=== PATIENT | male | born 1945 | race African-American/Black ===

== ENCOUNTER 2018-06-18 11:37 | Inpatient (IN) ==
[2018-06-18 12:16] LABS: BASO# 0.01 X1000 (0.0-0.2); BASO% 0.1 % (0.0-0.8); EOS# 0.02 X1000 (0.0-0.7); EOS% 0.2 % (0.0-10.0); HEMATOCRIT 41.1 % (42.0-52.0); IMM GRAN# 0.02 X1000 (0.0-0.04); IMM GRAN% 0.2 % (0.0-0.5); LYMPH# 0.69 X1000 (1.2-3.4); LYMPH% 5.9 % (20.5-51.1); MCH 29.9 PG (27-31); MCHC 34.1 g/dL (33-37); MCV 87.6 FL (81-99); MONO# 0.38 X1000 (0.11-0.59); MONO% 3.3 % (1.7-9.3); MPV 11.8 FL (7.4-10.4); NEUT# 10.55 X1000 (1.4-6.5); NEUT% 90.3 % (42.2-75.2); PLT 117 X1000 (130-400); RBC 4.69 XMIL (4.7-6.1); RDW 12.4 % (11.5-14.5); WBC 11.67 X1000 (4.8-10.8)
--- NOTE | 2018-06-18 12:23 | Diag Imaging Result Doc PS360 ---
EXAM: CT HEAD W/O CONTRAST HISTORY: freq falls, dementia, inability to walk TECHNIQUE: CT head without contrast COMPARISON: 09/13/2016 FINDINGS: No parenchymal hemorrhage. No acute epidural or subdural hematoma. Tiny chronic left subdural collection measuring 3 mm in thickness. No subarachnoid hemorrhage. There is mild atrophy with mild chronic microvascular ischemic changes. No mass identified on this noncontrasted exam. No hydrocephalus. No skull fracture. IMPRESSION: 1.No acute hemorrhage 2.Mild atrophy with chronic microvascular ischemic changes. This exam was performed using automated exposure control, adjustment of mA or kV according to patient size, and/or use of iterative reconstruction technique. Electronically signed by Jd Davies 06/18/2018 12:21 PM
--- NOTE | 2018-06-18 12:24 | Diag Imaging Result Doc PS360 ---
EXAM: CHEST-1 VIEW HISTORY: fall, L chest pain TECHNIQUE: Chest single view COMPARISON: 11/07/2017 FINDINGS: The lungs are well expanded. No contusion. No pneumothorax. The heart is not enlarged. The vessels are not distended. There are no infiltrates. No effusion identified. IMPRESSION: Negative exam. Electronically signed by Jd Davies 06/18/2018 12:22 PM
[2018-06-18 12:38] LABS: ALB/GLOB RATIO 1.6; ALBUMIN 4.1 g/dL (3.5-5.0); ALKALINE PHOSPHATASE 88 U/L (32-122); BUN 13 mg/dL (8-22); CREATININE 0.8 mg/dL (0.7-1.2); ESTIMATED GFR > 60; GLUCOSE 191 mg/dL (70-104); GOT 29 U/L (10-34); GPT 13 U/L (10-44); MAGNESIUM 1.8 mg/dL (1.5-2.7); TCO2 22 mmol/L (25-35); TOTAL BILIRUBIN 1.17 mg/dL (0.20-1.00); TOTAL PROTEIN 6.6 g/dL (6.3-8.3)
[2018-06-18 12:43] LABS: CHLORIDE 102 mmol/L (98-107); SODIUM 140 mmol/L (136-145)
[2018-06-18 12:54] LABS: AGAP 16; COSMO 285
--- NOTE | 2018-06-18 16:09 | PROVIDER DOCUMENTATION ---
This chart was entered by Tamika Ta Scribe, acting as scribe for Dion Howell MD. HPI-General Adult - General Chief Complaint: Weakness Stated Complaint: fall Time Seen by Provider: 06/18/18 11:39 Source: patient, family Allergies/Adverse Reactions: Patient Allergies Allergy/AdvReac Type Severity Reaction Status Date / Time No Known Allergies Allergy Verified 09/13/16 07:32 Home Medications: Home Medication List Medication Instructions Recorded Confirmed Last Taken Type Glimepiride 1 mg PO 09/13/16 Unknown History - History of Present Illness -Gen Adult Nature of Presenting Problems: 72 y/o male presents to ED with weakness onset this morning. Family reports he had shuffling gait this morning and fell just prior to arrival. states she found him on his L side after she heard him fall, and could not get him up. EMS reports he was incontinent of urine during the fall. states he fell on L side 5 days ago, but refused to come to ED. Daughter of pt reports his haldol dose was halved 2 weeks ago due to his tremors. She states he has been on haldol for years due to hallucinations. Pt denies any pain. Pt is alert and oriented. Location of Pain/Injury: reports: none Pain Radiation: reports: no radiation Quality of Pain: reports: none Severity: reports: mild, moderate Onset/Duration: reports: this morning Timing: reports: still present Context/Activities at Onset: reports: none Modifying Factors: improves with: nothing Associated Symptoms: reports: weakness, other (shuffling gait, fall, incontinent of urine) Similar Symptoms Previously?: No Recently seen or treated by another doctor?: No Review of Systems - Adult - REVIEW OF SYSTEMS - ADULT Constitutional: reports: other (fall). denies: chills, fever Eyes: reports: no symptoms reported Ears, Nose, Mouth & Throat: reports: no symptoms reported Cardiovascular: denies: chest pain, palpitations Respiratory: denies: cough, shortness of breath Gastrointestinal: denies: abdominal pain, diarrhea, nausea, vomiting Genitourinary: reports: incontinence. denies: discharge Musculoskeletal: denies: back pain, joint pain Integumentary: reports: no symptoms reported Neurological: reports: other (weakness, shuffling gait). denies: dizziness/ vertigo, seizure Psychiatric: reports: no symptoms reported Endocrine: reports: no symptoms reported Hematologic/Lymphatic: reports: no symptoms reported Allergic/Immunologic: reports: no symptoms reported All Other Systems: Reviewed and Negative Past History - Adult - PAST MEDICAL HISTORY-ADULT Review of Records: reports: Old Records Reviewed, Nursing Assessment Review, Medications Reviewed Major Childhood Illnesses: reports: denies history Cardiovascular: reports: HTN Respiratory: reports: denies history Gastrointestinal: reports: denies history Genitourinary: reports: denies history Musculoskeletal: reports: denies history Neurological: reports: cognitive dysfunction, dementia, Parkinson's (suspected) Psychiatric: reports: schizophrenia Endocrine/Immune: reports: Diabetes - PRIOR SURGERIES/PROCEDURES Surgical/Procedure History: reports: none - IMMUNIZATION STATUS Childhood Immunizations: See Nurse Assessment Flu Vaccine: See Nurse Assessment - FAMILY HISTORY Family History: reviewed, not pertinent - SOCIAL HISTORY Smoking: non-smoker Substance Use: none/never Alcohol Use Frequency: never Living Situation: family Physical Exam-General - PHYSICAL EXAM-ADULT Initial Vital Signs Reviewed: Yes - CONSTITUTIONAL General Appearance: appears well, alert, no apparent distress - EYES Eyes: PERRL/EOMI, pink conjunctivae - HEAD, EARS, NOSE, MOUTH & THROAT HENMT: normocephalic/atraumatic, moist mucous membranes, normal ENT inspection, other (rhinorrhea; hypopigmentation of face from old demarco) - NECK Neck: non-tender, full range of motion - RESPIRATORY Respiratory: chest non-tender, lungs clear, normal breath sounds - CARDIOVASCULAR Cardiovascular: normal peripheral pulses, regular rate, rhythm - GASTROINTESTINAL (ABDOMEN) Abdominal Exam: normal bowel sounds, non tender, soft - MUSCULOSKELETAL Back Exam: normal inspection, no CVA tenderness, other (baseline resting tremor of bilateral UE) Extremity: normal range of motion, non-tender, swelling (L hand). negative: normal gait (shuffling) - SKIN Integumentary: normal color, warm/dry, other (hypopigmentation of face from old demarco) - NEUROLOGIC Neurologic: grossly normal - PSYCHIATRIC Psych/Mental Status: normal mood/affect, normal thought content, normal thought process Progress - PLAN OF CARE/RESULTS Progress/Plan/Lab Results: Vital Signs - 8 hr 06/18/18 12:04 Temperature 97.6 F Pulse Rate 78 Respiratory Rate 18 Blood Pressure 142/85 O2 Sat by Pulse Oximetry 97 Laboratory Results - last 24 hr 06/18/18 12:00 WBC 11.67 H RBC 4.69 L Hgb 14.0 Hct 41.1 L MCV 87.6 MCH 29.9 MCHC 34.1 RDW Std Deviation 12.4 Plt Count 117 L MPV 11.8 H Immature Gran % (Auto) 0.2 Neut % (Auto) 90.3 H Lymph % (Auto) 5.9 L Nance % (Auto) 3.3 Eos % (Auto) 0.2 Baso % (Auto) 0.1 Immature Gran # (Auto) 0.02 Neut # (Auto) 10.55 H Lymph # (Auto) 0.69 L Nance # (Auto) 0.38 Eos # (Auto) 0.02 Baso # (Auto) 0.01 Orders Category Date Time Status CHEST-1 VIEW [RAD] Stat Exams 06/18/18 11:[address] HEAD W/O CONTRAST [CT] Stat Exams 06/18/18 11:52 Taken CBC WITH DIFF [HEME] Stat Lab 06/18/18 12:00 Completed COMPREHENSIVE METABOLIC PANEL [CHEM] Stat Lab 06/18/18 12:00 Received MAGNESIUM [CHEM] Stat Lab 06/18/18 12:00 Received TROPONIN T Stat Lab 06/18/18 12:00 Received EKG [EKG] Stat Ther 06/18/18 11:52 Ordered Laboratory Tests 06/18/18 06/18/18 06/18/18 12:00 12:00 12:00 WBC 11.67 H RBC 4.69 L Hgb 14.0 Hct 41.1 L MCV 87.6 MCH 29.9 MCHC 34.1 RDW Std Deviation 12.4 Plt Count 117 L MPV 11.8 H Immature Gran % (Auto) 0.2 Neut % (Auto) 90.3 H Lymph % (Auto) 5.9 L Nance % (Auto) 3.3 Eos % (Auto) 0.2 Baso % (Auto) 0.1 Immature Gran # (Auto) 0.02 Neut # (Auto) 10.55 H Lymph # (Auto) 0.69 L Nance # (Auto) 0.38 Eos # (Auto) 0.02 Baso # (Auto) 0.01 Sodium 140 Potassium 4.0 Chloride 102 Carbon Dioxide 22 L Anion Gap 16 BUN 13 Creatinine 0.8 Estimated GFR/1.73 m2 > 60 BUN/Creatinine Ratio 16 Glucose 191 H Calculated Osmolality 285 Calcium 9.0 Magnesium 1.8 Total Bilirubin 1.17 H AST 29 ALT 13 Alkaline Phosphatase 88 Troponin T < 0.010 Total Protein 6.6 Albumin 4.1 Globulin 2.5 Albumin/Globulin Ratio 1.6 Result Diagrams: 06/18/18 12:00 06/18/18 12:00 - EKG 1 Time of EKG reading by physician:: 13:49 EKG Read and Signed by:: Dion Howell EKG Interpretation (*Must complete 3 of following elements*): Normal Rate: 82 Rhythm: NSR [place]: normal QRS: normal NC Interval: normal ST Wave: normal - XRAY 1 XRAY Study: Chest Impression: Normal (FINDINGS: The lungs are well expanded. No contusion. No pneumothorax. The heart is not enlarged. The vessels are not distended. There are no infiltrates. No effusion identified. IMPRESSION: Negative exam. Electronically signed by Jd Davies 06/18/2018 12:22 PM) - CT/MRI 1 CT Study: Head Impression: Normal (FINDINGS: No parenchymal hemorrhage. No acute epidural or subdural hematoma. Tiny chronic left subdural collection measuring 3 mm in thickness. No subarachnoid hemorrhage. There is mild atrophy with mild chronic microvascular ischemic changes. No mass identified on this noncontrasted exam. No hydrocephalus. No skull fracture. IMPRESSION: 1.No acute hemorrhage 2.Mild atrophy with chronic microvascular ischemic changes. This exam was performed using automated exposure control, adjustment of mA or kV according to patient size, and/or use of iterative reconstruction technique. Electronically signed by Jd Davies 06/18/2018 12:21 PM) - CONSULTS/PCP/HOSPITALIST Notification #1 *Consult/PCP/Hospitalist*: Dr. Macario for Dr. Alexander Time Discussed: 14:33 Reason/Comments: New onset decreased ability to walk; incontinence; recent falls Consult Disposition: Will see in ED Consult Disposition: Will see in ED (discussed presentation w/ Dr. Macario ( covering Dr. Alexander.). Pt has hx suggx of Parkinsons and as recently as yesterday walked independently albeit w/ slow, shuffling gait. Today fell and couldn't get up and in ED cannot walk except w/ 2-person maximal assist. Dr. Macario will evaluate in the ED for admission.) Departure - Departure Date of Disposition Decision: 06/18/18 Time of Disposition Decision: 14:31 DIAGNOSIS: Weakness, Collapse, Gait disturbance Disposition: ADMITTED INPATIENT 09 Certified Medical Emergency: Emergent Condition: Good Additional Freetext Instructions: ED Follow Up Instructions: You have been treated by a care provider in the Emergency Department. These instructions are being provided to you so you can have an understanding of how to care for yourself upon discharge. Upon discharge from the Emergency Department, you are responsible for making arrangements for follow-up care by a physician of your choice. Take all prescribed medications as directed. Return to the Emergency Department immediately for any new or worsening symptoms. You may call the Physician Referral phone number at [phone] to obtain a list of Physicians who are taking new patients. Referrals and Follow-Ups: Carlos Alexander MD [Primary Care Provider] - - Critical Care Note This patient required my direct & personal management of CC.: No Attestation - Physician/ MAC Attestation Patient care was provided by Advanced Practice Provider:: No The physician spent face to face time with patient:: Yes Advanced Practice Provider documentation review:: Supervising physician onsite and consulted in the evaluation and care of this patient. The physician did have a face to face encounter with the patient. This chart was documented by the indicated scribe, (Tamika Ta, Scrleyla) and accurately reflects the services I performed and decisions made by me, Dion Howell MD, as attested by the provider's signature.
[2018-06-18] MEDS ORDERED: TYLENOL PO PRN (17:22)
[2018-06-18] MEDS ORDERED: PHENERGAN IV PRN (17:22)
[2018-06-18] MEDS ORDERED: SODIUM CHLORIDE 0.9% INJ PRN (17:22)
[2018-06-18 18:56] LABS: BILIRUBIN URINE NEGATIVE (NEGATIVE); BLOOD URINE NEGATIVE (NEGATIVE); COLOR YELLOW; GLUCOSE URINE 200 mg/dL (NEGATIVE); KETONE URINE TRACE mg/dL (NEGATIVE); LEUKOCYTES URINE NEGATIVE (NEGATIVE); NITRITE URINE NEGATIVE (NEGATIVE); PH URINE 7.5; PROTEIN URINE NEGATIVE (NEGATIVE); SP GRAVITY URINE 1.013; TURBIDITY URINE CLEAR (CLEAR); URINE SOURCE CATH; UROBILINOGEN URINE NORMAL (NORMAL)
[2018-06-18 18:57] LABS: UR EPITHELIAL CELLS <10 /HPF (<10); URINE BACTERIA NEGATIVE /HPF; URINE RBC <10 /HPF (<10); URINE WBC <10 /HPF (<10)
--- NOTE | 2018-06-18 19:29 | HISTORY AND PHYSICAL ---
Mr. Holland is a 72-year-old gentleman with a history of vascular dementia with behavior issues who is followed as an outpatient by Dr. Carlos Alexander. Because of visual and auditory hallucinations he had started Haldol. Dr. Alexander recently reduced the dosage of Haldol. Apparently, Mrs. Holland heard him fall and he was unable to get up under his own power. His sons physically had to lift him as he was unable to walk. He denies any unexplained hip pain. Upon further questioning, the family reported that he has had progressive difficulty with ambulation over the past several months. He has a persistent resting tremor. He has a slow shuffling gait with little arm movement. His initial CT scan of the brain demonstrated no intracranial hemorrhage. He had mild cerebral atrophy with diffuse white matter changes. PAST MEDICAL HISTORY: Vascular dementia with psychosis, type 2 non-insulin- dependent diabetes mellitus. PAST SURGICAL HISTORY: Inguinal hernia repair. ALLERGIES: No known drug allergies. FAMILY HISTORY: Noncontributory. SOCIAL HISTORY: He is a former smoker. He previously drank alcoholic beverages. He lives with his and has a supportive family. REVIEW OF SYSTEMS: He denies any recent weight gain or weight loss.HEENT: No loss of visual or auditory acuity. CV: No chest pain, palpitations, or anginal equivalents. Pulmonary: No shortness of breath, PND, orthopnea. GI: No reflux, dysphagia, melena, hematochezia, change in bowel habits, or rectal bleeding. Endocrine: No polyuria, no polydipsia. No cold or heat intolerance. Skin: No easy bruisability. : No leakage of urine with coughing or laughing. Neurologic: No migraines or seizures. Psychiatric: No history of depression. PHYSICAL EXAM: This is a chronically ill-appearing 72-year-old gentleman in no apparent distress. VITAL SIGNS: Temperature 97.6 degrees, pulse 78, respirations 18, BP 142/85. HEENT: Fundi with arteriolar wall thickening. Pupils equal, round, reactive to light. Extraocular eye movements intact. TMs without bullae. No gross exudates in oropharynx. NECK: Supple. No masses, JVD or bruits. CV: Regular rate and rhythm. LUNGS: Clear. ABDOMEN: Soft, nontender, with active bowel sounds. EXTREMITIES: Without edema. SKIN: No palpable purpura. AND RECTAL: Deferred. NEURO: He has a persistent resting tremor in the right hand. He has significant cogwheel rigidity in the upper extremities. He appears to have normal tone and strength in the upper and lower extremities. He has good grocery stocker strength. He was able to push his feet and pull his toes toward him against resistance. He was able to raise his leg approximately 12 inches off the bed and maintain against resistance. Strength would be 4/5 in the lower extremities. ASSESSMENT AND PLAN: 1. Metabolic encephalopathy. He has been more confused and disoriented according to the family. They reported that he had rambling speech and did not answer questions appropriately after his fall. He has a leukocytosis of 11,000 with a left shift. His chest x-ray is clear. I am going to obtain a urinalysis. I will began Levaquin pending blood and urine cultures. He did not seem to have any obvious electrolyte abnormalities. He certainly could have had a stroke. His initial CT scan demonstrates cerebral atrophy and diffuse white matter changes. We will arrange for an MRI of the brain on Wednesday. We will also consult Neurology. 2. Vascular dementia. I suspect that he has vascular dementia which has been exacerbated by the Parkinson's. I will begin an Exelon patch 4.6 g 1 patch to the chest daily. 3. Parkinson disease. He has all the classic history and physical findings of Parkinson's. Certainly Haldol can cause drug-induced Parkinson's. I am going to check antihistone antibiotics. In the interim period of time I will begin Sinemet 25/100 one p.o. b.i.d. 4. Type 2 [id number] diabetes mellitus. We will place him on an 1800 calorie ADA diet, pattern sugars and a Humulin R sliding scale. I am going to hold the Amaryl at present. Given his comorbid conditions and clinical presentation, I believe that admission to [facility] is reasonable and necessary. I anticipate that he will be in the hospital for at least 2 midnights and I will therefore place him in inpatient status. We will begin Lovenox 40 mg subcutaneously daily for DVT prophylaxis. cc: MD AVANI Ortiz
[2018-06-18] MEDS: HUMULIN R SUBQ SCH (21:36)
[2018-06-18] MEDS: SINEMET 25/100 PO SCH (21:37)
[2018-06-18] MEDS: NS 1,000 ML IV SCH (21:37)
[2018-06-19] MEDS: HUMULIN R SUBQ SCH ×4 (06:23→21:35)
[2018-06-19] MEDS: NS 1,000 ML IV SCH ×3 (09:51→22:43)
[2018-06-19] MEDS: SINEMET 25/100 PO SCH ×2 (09:52→21:35)
[2018-06-19] MEDS: EXELON 4.6MG/24HRS TD SCH (09:52)
[2018-06-19] MEDS: CALMOSEPTINE OINTMENT TOP SCH (10:30)
--- NOTE | 2018-06-19 10:49 | PROGRESS NOTE ---
DATE: 06/19/2018 HISTORY: Mr. Holland was admitted to [facility] with a metabolic encephalopathy. He has an underlying vascular dementia with a history of psychosis. He has had visual and auditory hallucinations. He has been on liquid Haldol. His initial CT scan demonstrated chronic white matter changes and cerebral atrophy. No acute hemorrhages or strokes were noted. This morning, he seems much more alert and interactive. He answered simple questions and followed simple commands. He was more talkative this morning. He does have a history of type 2 non-insulin- dependent diabetes mellitus. His blood sugars have ranged from 112 to 146. He has previously taken Amaryl and metformin. He continues with a persistent resting tremor, although he can spontaneously move his legs now. OBJECTIVE: Vital Signs: Temperature 97.7 degrees, pulse 80, respirations 20, BP 134/68. CV: Regular rate and rhythm. Lungs: Clear. Abdomen: Soft, nontender, with active bowel sounds. Neurologic: He is awake and easily arousable. He is oriented to name. He follows simple commands. Cranial nerves 2-12 intact grossly. He has normal tone and strength in the upper and lower extremities. He has good cod clerk strength bilaterally. Strength is 4/5 in the lower extremities bilaterally. He has a resting tremor. He has cogwheel rigidity. ASSESSMENT AND PLAN: 1. Type 2 [id number] diabetes mellitus. We will continue an 1800 calorie, [place] [employer] diet. Pattern sugars, Humulin R sliding scale, and resume metformin 500 mg daily. 2. Metabolic encephalopathy. Clinically, he is better this morning. Blood cultures and urine cultures are still pending. His CT was unremarkable. I suspect that it was a combination of volume depletion and medications. We will continue gentle fluid resuscitation. I will continue to hold the Haldol. Certainly, he could have had an acute stroke. His initial CT scan of the brain did not demonstrate an acute stroke. I will arrange for an MRI of the brain tomorrow. We will continue Exelon patches. 3. New onset Parkinson's disease. I am concerned that it is potentially due to the Haldol. I have held the Haldol. I have sent off for antihistone antibodies. We will continue Sinemet 25/100 one by mouth twice a day. We will consult physical therapy. We will consult addiction social worker for short-term rehab needs. 4. Stage 2 pressure ulcer right buttock [POA}---will apply Calmoseptine daily and consult wound care nurse cc: Cassius Macario MD MTDD
[2018-06-20] MEDS: HUMULIN R SUBQ SCH (06:17)
--- NOTE | 2018-06-20 08:19 | EKG Report ---
Test Performed on : 06/18/2018 1:35:58 PM Test Reason : frequent falls, ? syncope Blood Pressure : / mmHG Vent. Rate : 082 BPM Atrial Rate : 082 BPM P-R Int : 138 ms QRS Dur : 082 ms QT Int : 396 ms P-R-T Axes : 071 055 059 degrees QTc Int : 462 ms Normal sinus rhythm. Normal ECG When compared with ECG of 07-NOV-2017 19:57, ST no longer depressed in Lateral leads Nonspecific T wave abnormality no longer evident in Lateral leads Unconfirmed Result
[2018-06-20] MEDS ORDERED: GLUCOPHAGE PO SCH (09:00)
[2018-06-20] MEDS: SINEMET 25/100 PO SCH ×2 (11:36→21:52)
[2018-06-20] MEDS: CALMOSEPTINE OINTMENT TOP SCH (11:36)
[2018-06-20] MEDS: EXELON 4.6MG/24HRS TD SCH (11:36)
[2018-06-20] MEDS: AMARYL PO SCH (11:41)
--- NOTE | 2018-06-20 13:46 | Diag Imaging Result Doc PS360 ---
EXAM: MRI BRAIN W/WO CONTRAST 06/20/2018 HISTORY: AMS AND SLURRED SPEECH TECHNIQUE: T1 sagittal, axial and post gadolinium-enhanced FSPGR axial with coronal reformation, T2, FLAIR, DWI axial and coronal gradient echo. COMMENT: There is some slight hyperintensity in the periventricular white matter bilaterally. There is no evidence of restricted diffusion. There is no mass effect. There is asymmetrical meningeal enhancement on the left compared to the right. There is increased precontrast T1-weighted signal intensity with thickening of the pachymeninx. This is associated with a laminar band of decreased gradient echo signal intensity which suggests an old subdural hematoma. The differential diagnosis would also include syphilis, tuberculosis, other granulomatous infections, or hypertrophic pachymeningitis. 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 Electronically signed by Eligio Morales 06/20/2018 1:44 PM
[2018-06-21] MEDS: EXELON 4.6MG/24HRS TD SCH (09:29)
[2018-06-21] MEDS: AMARYL PO SCH (09:29)
[2018-06-21] MEDS: CALMOSEPTINE OINTMENT TOP SCH (09:30)
[2018-06-21] MEDS: SINEMET 25/100 PO SCH ×3 (09:30→18:43)
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
[2018-06-22] MEDS ORDERED: PREVNAR 13 IM ONE (08:46)
[2018-06-22] MEDS: EXELON 4.6MG/24HRS TD SCH (09:10)
[2018-06-22] MEDS: CALMOSEPTINE OINTMENT TOP SCH (09:10)
[2018-06-22] MEDS: SINEMET 25/100 PO SCH ×3 (09:10→17:58)
[2018-06-22] MEDS: AMARYL PO SCH (09:10)
[2018-06-22 09:15] LABS: BASO# 0.02 X1000 (0.0-0.2); BASO% 0.3 % (0.0-0.8); EOS# 0.24 X1000 (0.0-0.7); EOS% 3.9 % (0.0-10.0); HEMATOCRIT 42.1 % (42.0-52.0); HEMOGLOBIN 14.4 g/dL (14.0-18.0); LYMPH# 1.91 X1000 (1.2-3.4); MCH 29.9 PG (27-31); MCHC 34.2 g/dL (33-37); MCV 87.5 FL (81-99); MONO% 6.5 % (1.7-9.3); MPV 11.8 FL (7.4-10.4); NEUT% 58.3 % (42.2-75.2); PLT 126 X1000 (130-400); RBC 4.81 XMIL (4.7-6.1); RDW 12.4 % (11.5-14.5); WBC 6.17 X1000 (4.8-10.8)
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
[2018-06-22 12:50] LABS: INR 0.93; PROTIME 13.2 Seconds (11.0-16.0)
[2018-06-22 12:51] LABS: PTT 28.7 Seconds (22.3-41.8)
[2018-06-22] MEDS ORDERED: XYLOCAINE 1% INJ ONE (13:15)
[2018-06-22] MEDS: ATIVAN IV PRN (14:01)
[2018-06-23] MEDS: SINEMET 25/100 PO SCH ×3 (08:36→22:41)
[2018-06-23] MEDS: AMARYL PO SCH (08:36)
[2018-06-23] MEDS: EXELON 4.6MG/24HRS TD SCH (08:37)
[2018-06-23] MEDS: CALMOSEPTINE OINTMENT TOP SCH (08:37)
--- NOTE | 2018-06-23 10:42 | DISCHARGE SUMMARY ---
ADMISSION DATE: 06/20/2018 DISCHARGE DATE: FINAL DIAGNOSES: 1. Inability to walk, multifactorial. 2. Generalized muscle weakness. 3. 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 4. Dementia, Lewy body dementia suspected. 5. Type 2 diabetes mellitus. 6. Abnormal MRI with patchy meningeal uptake, probably due to old subdural hematoma. HISTORY OF PRESENT ILLNESS: Mr. Holland is a 72-year-old gentleman with history of dementia with behavioral issues. On the day of admission, he was heard to fall at home and was unable to get up by himself and his had to call his sons. With difficulty , they were able to get him up to a chair. He was unable to walk and was brought to the emergency room for further evaluation. He was noted have a history of a slow shuffling gait with little arm movement and some intermittent tremor in his hands and feet. Approximately 18 months ago, his brought him to my office because of primarily visual hallucinations and paranoid ideation. He would not take his medications for diabetes or other oral medicines as he felt somebody was trying to poison him. He was started on some oral Haldol solution to treat his behavioral abnormalities. He remained somewhat paranoid and would not return to my office for further evaluation. PHYSICAL EXAMINATION: Vital signs were unremarkable. His lungs were clear. Cardiac: Regular rate and rhythm, no murmurs. Abdomen: Soft and nontender. Neurologic: Remarkable for pill rolling resting tremor in the right hand with some significant cogwheel rigidity in both upper extremities. He denied hip or pelvic pain and was able to raise both legs off the bed against resistance. DATA BASE: Admission laboratory and CT scan were fairly unremarkable except for leukocytosis of 11,000. Chest x-ray was unremarkable. Urinalysis was unremarkable. CT scan showed some mild cerebral atrophy and mild diffuse white matter changes. HOSPITAL COURSE: He was admitted to the medical floor and physical therapy consult was ordered. He was started on Exelon patch 4.6 mg daily. He was also started on Sinemet 25/ 100 and tolerated this well, and it was increased to 3 times a day. His diabetes was treated with a diabetic diet and resumption of his glimepiride. His haloperidol was discontinued. An MRI scan was performed on 06/20/2018 and documented some asymmetrical thickening and enhancement of the meninges. The differential diagnosis was wide and included such things as tuberculosis and syphilis. Neurology consult was requested and agreed that he had Parkinson's syndrome, possibly Parkinson's disease, but also considered drug-induced parkinsonism. He improved with discontinuation of the Haldol and institution of Sinemet. In the future, I will consider tapering his Sinemet to see if the Parkinson's returns. He was seen by physical therapy and ambulated well, and I felt he had an excellent rehab prognosis. Neurologist advised lumbar puncture and he initially agreed but changed his mind and the procedure was aborted. His quantiferon test is pending at the time of discharge due to inability to ship specimens to [facility]. His chest x-ray shows no evidence of tuberculosis and I feel he is low risk for this at the [facility]. He is discharged (pending [employer] approval ) to [facility] for subacute rehab and has a good prognosis to return home. DISCHARGE MEDICATIONS: 1. Glimepiride 1 mg daily. 2. Exelon patch 4.6 mg q.24 hours. 3. Sinemet 25/100 one three times a day. 4. Calmoseptine ointment topically daily as needed It should be noted that he had a superficial stage 2 pressure sore on his left buttock on admission that was treated with hydrocolloid dressings and mobilization. As his nutritional status is adequate, I feel this has a good prognosis to heal with proper care. cc: MD Cassius Padron MD MTDAnthony
[2018-06-24 08:24] VITALS: BP 123/71
[2018-06-24] MEDS: AMARYL PO SCH (09:37)
[2018-06-24] MEDS: CALMOSEPTINE OINTMENT TOP SCH (09:37)
[2018-06-24] MEDS: EXELON 4.6MG/24HRS TD SCH (09:38)
[2018-06-24] MEDS: SINEMET 25/100 PO SCH (09:38)
[2018-06-24] MEDS: ATIVAN IV PRN (09:47)
== END 2018-06-24 16:02 | DRG 57 ==
LOC: SUPCPDRO → 3N 11:37 → ED 11:37
PROVIDERS: ADMIT Internal Medicine; ATTEND Internal Medicine
CPT/HCPCS: 70450; 70553; 71010; 71045; 80053; 81001; 82948; 83516; 83735; 84134; 84484; 85025; 85610; 85651; 85730; 86140; 86255; 86480; 86592; 87040; 87088; 93005; 97116; 97161; 97530; 99285; A9270; A9579; J2060; J7030; XXXXX